=== PATIENT | male | born 1955 | race African-American/Black ===

== ENCOUNTER 2016-07-20 11:55 | Emergency (ER) | payer OTHER ==
--- NOTE | 2016-07-20 12:00 | ER Document Report ---
ED Medical Screen (RME) - General Stated Complaint: TOE PAIN Mode of Arrival: Ambulatory Information source: Patient Notes: Patient presents emergency department with right great toe pain after stubbing it on Wednesday night. Reports that toenail is loose. Patient denies past medical history of diabetes. I have greeted and performed a rapid initial assessment of this patient. A comprehensive ED assessment and evaluation of the patient, analysis of test results and completion of the medical decision making process will be conducted by additional ED providers.
[2016-07-20 12:02] VITALS: BP 167/101
[2016-07-20] MEDS ORDERED: LIDOCAINE 1% INJ-PF (10 MG/ML) 30 ML SDV INJ ONE (12:59)
[2016-07-20] MEDS ORDERED: ACETAMINOPHEN 325 MG TABLET PO ONE (13:00)
--- NOTE | 2016-07-20 13:11 | ER Document Report ---
ED Extremity Problem, Lower - General Chief Complaint: Toe Injury Stated Complaint: TOE PAIN Mode of Arrival: Ambulatory Notes: Patient is a 61-year-old male who presents emergency Department complaining of right big toe pain. Patient states that he stubbed his toe in his kitchen on Wednesday evening and his toenail has been loose since then. He states that he came in today because his toe has been draining yellow cloudy discharge. Admits to pain at the area. Has been able to bear weight. Denies any bleeding. Past medical history significant for chronic low back pain. Denies any history of diabetes or chronic wounds. TRAVEL OUTSIDE OF THE [place] IN LAST 30 DAYS: No - Related Data Allergies/Adverse Reactions: celecoxib [From Celebrex] Allergy (Verified 07/20/16 12:00) NSAIDS (Non-Steroidal Anti-Inflamma Allergy (Verified 07/20/16 12:00) Past Medical History - General Information source: Patient - Social History Smoking Status: Current Every Day Smoker Chew tobacco use (# tins/day): Yes Family History: Reviewed & Not Pertinent Patient has suicidal ideation: No Patient has homicidal ideation: No Renal/ Medical History: Denies: Hx Peritoneal Dialysis Review of Systems - Review of Systems Musculoskeletal: See HPI -: Yes All other systems reviewed and negative Physical Exam - Vital signs Vitals: Temp Pulse Resp BP Pulse Ox 98.3 F 84 16 167/101 H 97 07/20/16 12:00 07/20/16 12:00 07/20/16 12:00 07/20/16 12:00 07/20/16 12:00 - General General appearance: Appears well, Alert In distress: None - Extremities Foot: Nail injury - complete nail avulsion of the nail bed of the right big toe with cloudy drainage, tenderness and swelling of the big toe. - Skin Skin Temperature: Warm Skin Moisture: Dry Skin Color: Normal Skin Turgor: Elastic Course - Re-evaluation Re-evalutation: 07/20/16 13:49 Patient presents with a simple avulsion of the right big toenail. Local lidocaine injected and toenail easily removed. Irrigated with saline and Shur- Clens and dressed with iodoform gauze and Kerlix. Discussed with him cleaning and wound care. - Vital Signs Vital signs: Temp Pulse Resp BP Pulse Ox 98.3 F 84 16 167/101 H 97 07/20/16 12:00 07/20/16 12:00 07/20/16 12:00 07/20/16 12:00 07/20/16 12:00 - Diagnostic Test Radiology reviewed: Image reviewed, Reports reviewed - No evidence of fracture Procedures - Nail Trephanation/Removal Right Great toe Time completed: 13:35 Nail Trepanation/Removal Location: removal right big toe Betadine prep applied: Yes Sterile Dressing Applied: Yes Discharge - Discharge Clinical Impression: Nail avulsion of toe Condition: Good Disposition: HOME, SELF-CARE Additional Instructions: Wound care Simple avulsions should be soaked in warm water 24 to 48 hours after the procedure. Before removal of the dressing, I recommend that patients soak their digit in the shower or in a bowl to avoid bleeding and pain when the dressing is removed. A gelatinous film of epithelium is likely to appear over the exposed nail bed and can be gently removed with dilute hydrogen peroxide on a cotton-tipped applicator. The cotton tip should be rolled over the site gently, avoiding rubbing or vigorous attempts at tissue removal. A small amount of petrolatum or antibiotic ointment is placed on the tissue, then it is covered with an adhesive bandage for a simple avulsion. This dressing change should be repeated daily. Forms: Elevated Blood Pressure Referrals: ÁNGEL MXI MD [ACTIVE STAFF] - Follow up as needed
== END 2016-07-20 14:10 | disposition home or self-care (01) ==
LOC: ER 11:55
PROC: 0HDRXZZ Extraction of Toe Nail, External Approach (ICD-10-PCS; principal; 2016-07-20)
DX: S91.201A Unspecified open wound of right great toe with damage to nail, initial encounter (principal); W22.09XA Striking against other stationary object, initial encounter; Y92.000 Kitchen of unspecified non-institutional (private) residence as the place of occurrence of the external cause; F17.200 Nicotine dependence, unspecified, uncomplicated
CPT/HCPCS: 99283

== ENCOUNTER 2018-05-27 15:49 | Emergency (ER) | payer OTHER ==
--- NOTE | 2018-05-27 16:29 | ER Document Report ---
ED Medical Screen (RME) - General Chief Complaint: Chest Pain Stated Complaint: CHEST PAIN Time Seen by Provider: 05/27/18 16:26 Mode of Arrival: Ambulatory Information source: Patient Notes: 62-year-old male presents to ED for complaint of chest pain with respirations or cough shortness of breath dehydration and severe diarrhea. He states he is coughing up a very thick yellow sputum. He states he had a colonoscopy on May 23 and has had severe diarrhea since starting the prep the day before. He states he has lost 10 pounds since the colonoscopy due to diarrhea. He states he feels very dehydrated chest feels tight legs are cramping. Patient states the only past medical history is high blood pressure and arthritis. He states when he had a colonoscopy he had some polyps. I have greeted and performed a rapid initial assessment of this patient. A comprehensive ED assessment and evaluation of the patient, analysis of test results and completion of medical decision making process will be conducted by an additional ED providers. I have greeted and performed a rapid initial assessment of this patient. A comprehensive ED assessment and evaluation of the patient, analysis of test results and completion of medical decision making process will be conducted by an additional ED providers. TRAVEL OUTSIDE OF THE [place] IN LAST 30 DAYS: No - Related Data Allergies/Adverse Reactions: celecoxib [From Celebrex] Allergy (Verified 07/20/16 12:00) NSAIDS (Non-Steroidal Anti-Inflamma Allergy (Verified 07/20/16 12:00) Past Medical History Renal/ Medical History: Denies: Hx Peritoneal Dialysis Physical Exam - Vital signs Vitals: Temp Pulse Resp BP Pulse Ox 97.6 F 110 H 19 111/80 98 05/27/18 16:04 05/27/18 16:04 05/27/18 16:04 05/27/18 16:04 05/27/18 16:04 Course - Vital Signs Vital signs: Temp Pulse Resp BP Pulse Ox 97.6 F 110 H 19 111/80 98 05/27/18 16:04 05/27/18 16:04 05/27/18 16:04 05/27/18 16:04 05/27/18 16:04
[2018-05-27] MEDS ORDERED: NORMAL SALINE 1000 ML 1,000 ML IV ONE (16:30)
--- NOTE | 2018-05-27 18:27 | EKG REPORT ---
SEVERITY:- BORDERLINE ECG - SINUS RHYTHM PROBABLE LEFT ATRIAL ABNORMALITY : Confirmed by: Calos Allen MD 27-May-2018 18:27:13
[2018-05-27 19:03] LABS: HEMATOCRIT 47.3 % (37.9-51.0); HEMOGLOBIN 16.6 g/dL (13.5-17.0); MEAN CORPUSCULAR HEMOGLOBIN 32.3 pg (27.0-33.4); MEAN CORPUSCULAR HGB CONC 35.1 g/dL (32.0-36.0); MEAN CORPUSCULAR VOLUME 92 fl (80-97); PLATELET COUNT 135 10^3/uL (150-450); RED BLOOD COUNT 5.14 10^6/uL (4.35-5.55); RED CELL DISTRIBUTION WIDTH 13.6 % (11.5-14.0); WHITE BLOOD COUNT 9.1 10^3/uL (4.0-10.5)
[2018-05-27 19:06] LABS: ALANINE AMINOTRANSFERASE 36 U/L (21-72); ALBUMIN 4.7 g/dL (3.5-5.0); ALKALINE PHOSPHATASE 76 U/L (38-126); ANION GAP 12 (5-19); ASPARTATE AMINO TRANSFERASE 47 U/L (17-59); BILIRUBIN,DIRECT 0.4 mg/dL (0.0-0.4); BILIRUBIN,TOTAL 0.7 mg/dL (0.2-1.3); BLOOD UREA NITROGEN 16 mg/dL (7-20); CALCIUM 9.4 mg/dL (8.4-10.2); CARBON DIOXIDE 25 mmol/L (22-30); CHLORIDE 106 mmol/L (98-107); CREATINE KINASE 88 U/L (55-170); GLUCOSE 107 mg/dL (75-110); POTASSIUM 4.9 mmol/L (3.6-5.0); SODIUM 142.5 mmol/L (137-145); TOTAL PROTEIN 7.7 g/dL (6.3-8.2)
[2018-05-27 19:20] LABS: CREATINE KINASE MB < 0.22 ng/mL (<4.55); TROPONIN I < 0.012 ng/mL
--- NOTE | 2018-05-27 19:22 | RADIOLOGY REPORT (SQ) ---
EXAM DESCRIPTION: CHEST 2 VIEWS COMPLETED DATE/TIME: 05/27/2018 7:00 pm REASON FOR STUDY: cough congestion sob COMPARISON: None. EXAM PARAMETERS: NUMBER OF VIEWS: two views TECHNIQUE: Digital Frontal and Lateral radiographic views of the chest acquired. RADIATION DOSE: NA LIMITATIONS: none FINDINGS: LUNGS AND PLEURA: No acute opacities. Scarring at the lung bases. No pneumothorax. MEDIASTINUM AND HILAR STRUCTURES: No masses or contour abnormalities. HEART AND VASCULAR STRUCTURES: Heart normal size. No evidence for failure. BONES: No acute findings. HARDWARE: None in the chest. OTHER: No other significant finding. IMPRESSION: Chronic appearing changes without acute parenchymal opacities. TECHNICAL DOCUMENTATION: JOB ID: [id number] [employer]- All Rights Reserved Reading location - IP/workstation name: [email or web address]
[2018-05-27 19:36] LABS: ABSOLUTE LYMPHOCYTES# (MANUAL) 1.1 10^3/uL (0.5-4.7); ABSOLUTE MONOCYTES # (MANUAL) 0.8 10^3/uL (0.1-1.4); ABSOLUTE NEUTROPHILS# (MANUAL) 7.2 10^3/uL (1.7-8.2); BASOPHILS % (MANUAL) 0 % (0-2); EOSINOPHILS % (MANUAL) 0 % (0-6); LYMPHOCYTES % (MANUAL) 12 % (13-45); MONOCYTES % (MANUAL) 9 % (3-13); PLATELET LARGE PRESENT; SEGMENTED NEUTROPHILS % (MAN) 79 % (42-78); TOTAL CELLS COUNTED 100
[2018-05-27 19:37] LABS: PLATELET COMMENT DECREASED; RBC MORPHOLOGY COMMENT NORMO-CYTIC/CHROMIC
--- NOTE | 2018-05-27 22:04 | ER Document Report ---
ED General - General Chief Complaint: Chest Pain Stated Complaint: CHEST PAIN Time Seen by Provider: 05/27/18 16:26 Primary Care Provider: KLEBER PINA [Primary Care Provider] - 05/30/18 Mode of Arrival: Ambulatory Notes: Patient is a pleasant 62-year-old male presents with complaint of body aches. He is also diarrhea. He says he is felt that ever since he had a colonoscopy. He said he had a colonoscopy did the prep and since that has had recurrent diarrhea and feels as if he is becoming dehydrated. He also noticed shortly after colonoscopy was having a lot of coughing. He said whenever he coughs it hurts in his lower chest. He says he is bringing up mucousy type sputum. He has not noticed any fevers. He does not have any abdominal pain. No blood in his stool. No vomiting. No other complaints at this time. TRAVEL OUTSIDE OF THE [place] IN LAST 30 DAYS: No - Related Data Allergies/Adverse Reactions: celecoxib [From Celebrex] Allergy (Verified 07/20/16 12:00) NSAIDS (Non-Steroidal Anti-Inflamma Allergy (Verified 07/20/16 12:00) Past Medical History - General Information source: Patient - Social History Smoking Status: Current Every Day Smoker Frequency of alcohol use: Occasional Drug Abuse: Marijuana Family History: Reviewed & Not Pertinent Patient has suicidal ideation: No Patient has homicidal ideation: No - Past Medical History Cardiac Medical History: Reports: Hx Hypertension Renal/ Medical History: Denies: Hx Peritoneal Dialysis Musculoskeletal Medical History: Reports Hx Arthritis Review of Systems - Review of Systems Notes: My Normal Review Basic REVIEW OF SYSTEMS: CONSTITUTIONAL : Denies fever, chills, or sweats. Denies recent illness. EENT: Denies eye, ear, throat, or mouth pain or symptoms. Denies nasal or sinus congestion. CARDIOVASCULAR: Pain with coughing RESPIRATORY: Coughing up of thick yellow sputum GASTROINTESTINAL: Diarrhea GENITOURINARY: Denies difficulty urinating, painful urination, burning, frequency, or blood in urine. MUSCULOSKELETAL: Denies neck or back pain or joint pain or swelling. SKIN: Denies rash or skin lesions. NEUROLOGICAL: Denies altered mental status or loss of consciousness. Denies headache. Denies weakness or paralysis or loss of use of either side. Denies problems with gait or speech. Denies sensory or motor loss. ALL OTHER SYSTEMS REVIEWED AND NEGATIVE. Physical Exam - Vital signs Vitals: Temp Pulse Resp BP Pulse Ox 97.6 F 110 H 19 111/80 98 05/27/18 16:04 05/27/18 16:04 05/27/18 16:04 05/27/18 16:04 05/27/18 16:04 - Notes Notes: General Appearance: Well nourished, alert, cooperative, no acute distress, no obvious discomfort. Well-appearing. Vitals: reviewed, See vital signs table. Head: no swelling or tenderness to the head Eyes: PERRL, EOMI, Conjuctiva clear Mouth: No decreasd moisture Lungs: No wheezing, No rales, some basilar rhonchorous breath sounds., No accessory muscle use, good air exchange bilaterally. Heart: Tachycardic rate, Regular rythm, No murmur, no rub Abdomen: Normal BS, soft, No rigidity, No abdominal tenderness, No guarding, no rebound, no abdominal masses, no organomegaly Extremities: strength 5/5 in all extremities, good pulses in all extremities, no swelling or tenderness in the extremities, no edema. Skin: warm, dry, appropriate color, no rash Neuro: speech clear, oriented x 3, normal affect, responds appropriately to questions. Course - Re-evaluation Re-evalutation: 05/28/18 08:07 Patient is bringing up yellowish type sputum. There is no pneumonia on chest x- ray. He continued to be tachycardic and therefore I went forward with a CTA chest as he just had a recent procedure and was persistently tachycardia. This showed some bronchiectasis with mucus plugging. I therefore placed him on been on inhalers can place him azithromycin. He then spiked a fever just prior to discharge. I kept him a bit longer to make sure his fever resolved. I will switch him from azithromycin to Levaquin as of suspect he probably has some superimposed bacterial infection from the mucus plugging in the large amount of yellow sputum that he is bringing up. I have given him IV fluids. He feels much improved after IV fluids. His tachycardia is intermittent. At times heart will be in the 80s and at other times his heart rate will be in the low 100s. He clinically looks very well. He says he feels much improved. Feel he safe to be discharged home. I encouraged him to have a low threshold to return to ER immediately if he has recurrent fevers, difficulty breathing, bloody stools, worsening diarrhea, abdominal pain, or if he feels unwell. Patient agrees with plan and will be discharged home. Dictation of this chart was performed using voice recognition software; therefore, there may be some unintended grammatical errors. - Vital Signs Vital signs: Temp Pulse Resp BP Pulse Ox 98.9 F 90 19 110/71 97 05/28/18 03:48 05/28/18 03:48 05/28/18 03:48 05/28/18 03:48 05/28/18 03:48 - Laboratory Result Diagrams: 05/27/18 18:15 05/27/18 18:15 Laboratory results interpreted by me: 05/27/18 05/27/18 18:15 18:15 Plt Count 135 L Seg Neuts % (Manual) 79 H Lymphocytes % (Manual) 12 L Magnesium 2.7 H - EKG Interpretation by Me Additional EKG results interpreted by me: 05/27/18 22:03 EKG is reviewed and interpreted by me. EKG shows sinus rhythm with a rate of [address] segment elevation or depression. No ischemic T wave inversions. MD interval, QRS duration, QT intervals are within normal range. Old EKG for comparison is unavailable at this time. Discharge - Discharge Clinical Impression: Bronchitis Back pain Qualifiers: Back pain location: low back pain Chronicity: acute Back pain laterality: bilateral Sciatica presence: without sciatica Qualified Code(s): M54.5 - Low back pain Diarrhea Qualifiers: Diarrhea type: unspecified type Qualified Code(s): R19.7 - Diarrhea, unspecified Condition: Good Disposition: HOME, SELF-CARE Additional Instructions: Please continue to rehydrate with noncaffeinated fluids. please take the nausea medication as prescribed. Please return to the ER immediately if you develop fevers, vomiting, worsening pain, blood in your stool, or feel that you are wor sening in any way. Please follow up with your doctor on Wednesday for reevaluation. Use your inhaler as 2 puffs every 4 hours as needed for cough and to help airway so that he can clear the mucus in your lungs better. Please return to ER immediately if you have difficulty breathing or current worsening chest pain. You have been prescribed an antibiotic that is in the class of antibiotics called fluoroquinolones. On rare occasions these can cause weakness of the tendons. You should therefore avoid any type of heavy lifting or sporting activities while you are on this antibiotic and up to 1 week after stopping it. Prescriptions: RX: Azithromycin [Zithromax 250 mg Tablet] 250 mg PO ASDIR PRN #6 tablet PRN Reason: Dicyclomine HCl [Bentyl 20 mg Tablet] 20 mg PO QID #20 tablet Levofloxacin [Levaquin 750 mg Tablet] 750 mg PO DAILY #5 tablet Referrals: [facility] [Primary Care Provider] - 05/30/18
[2018-05-27] MEDS ORDERED: DICYCLOMINE HCL INJ 20 MG/2 ML AMPULE IM ONE (23:08)
[2018-05-27] MEDS ORDERED: RINGERS SOLUTION,LACTATED 1,000 ML IV ONE (23:08)
--- NOTE | 2018-05-28 02:27 | RADIOLOGY REPORT (SQ) ---
CLINICAL HISTORY: dyspnea, tachycardia, chest pain COMPARISON: None. TECHNIQUE: CT CHEST ANGIOGRAPHY WITHOUT THEN WITH IV CONTRAST on 05/28/2018 1:44 AM [employer]. MIPS reconstructions were generated. This exam was performed according to our departmental dose-optimization program, which includes automated exposure control, adjustment of the mA and/or kV according to patient size and/or use of iterative reconstruction technique. MIP images were generated. FINDINGS: Thoracic aorta is normal in course and caliber without aneurysm or dissection. Pulmonary arteries are adequately opacified without acute or chronic filling defects. The heart is normal in size. There is no pericardial effusion. Intrathoracic lymph nodes are not enlarged. Right thyroid nodule measures 1.5 cm. There is no pleural effusion, pleural thickening or pneumothorax. There is bibasilar mucous plugging, especially in the right with associated bronchial wall thickening and mild bronchiectasis. There is upper lung paraseptal and centrilobular emphysema. There are no acute abnormalities within the limited images of the upper abdomen. There are no acute osseous findings. No suspicious bony lesions. IMPRESSION: Bibasilar bronchiectasis and mucous plugging. Underlying infectious process is not excluded. No aortic dissection or aneurysm. No pulmonary embolus.
[2018-05-28] MEDS ORDERED: ALBUTEROL SULFATE HFA (90 MCG/PUFF) 8 GM MDI (1 MDI/ER DISP) IH ONE (02:33)
[2018-05-28] MEDS ORDERED: ACETAMINOPHEN 325 MG TABLET PO ONE (02:46)
[2018-05-28] MEDS ORDERED: LEVOFLOXACIN 750 MG TABLET PO ONE (02:47)
[2018-05-28] MEDS ORDERED: ACETAMINOPHEN 325 MG TABLET ONE (02:47)
[2018-05-28 04:04] VITALS: BP 110/71
== END 2018-05-28 04:03 | disposition home or self-care (01) ==
LOC: ER 15:49
DX: J40 Bronchitis, not specified as acute or chronic (principal); M54.5 Low back pain; R19.7 Diarrhea, unspecified; R07.9 Chest pain, unspecified; M79.10 Myalgia, unspecified site; R05 Cough; Z98.890 Other specified postprocedural states; F17.200 Nicotine dependence, unspecified, uncomplicated; I10 Essential (primary) hypertension
CPT/HCPCS: 93005; 99285; 96372; 96360; 96361; 36415; 87040; 82553; 82550; 83735; 85025; 80053; 84484; 71046; 71275; 93010; J0500; J7030; J7120; J3490

== ENCOUNTER 2018-10-20 21:45 | Emergency (ER) | payer OTHER ==
[2018-10-20 21:59] VITALS: BP 134/72
--- NOTE | 2018-10-20 23:43 | ER Document Report ---
ED Medical Screen (RME) - General Chief Complaint: Rib Pain Stated Complaint: FALL Time Seen by Provider: 10/20/18 23:39 Primary Care Provider: YOVANI,KLEBER [Primary Care Provider] - Follow up as needed Notes: 63-year-old -[place]aced[place] male coming in today chief complaint right rib pain. He states because of his bad neuropathy his legs gave out on him as he was going to sit down on the couch. Subsequently he fell and hit his right ribs on the armrest of the couch. States he could feel the would from the hand and wrist striking each of his ribs on the right side. He is not short of breath but is having quite a bit of pain when he takes a deep breath. I have treated and performed a rapid initial assessment of this patient. A comprehensive ED assessment and evaluation of the patient, analysis of test resu lts and completion of medical decision making process will be conducted by additional ED providers. PHYSICAL EXAMINATION: GENERAL: Well-appearing, well-nourished and in no acute distress. A&Ox4. A nswers questions appropriately. LUNGS: Breath sounds clear to auscultation bilaterally and equal. No wheezes rales or rhonchi. Right-sided rib tenderness HEART: Regular rate and rhythm without murmurs, rubs, gallops. ABDOMEN: Soft, nondistended abdomen. No guarding, no rebound. Normal bowel sounds present. No CVA tenderness bilaterally. + mild epigastric tenderness (cannot elicit thorough abd exam w/o table, however). Extremities: No cyanosis, clubbing, or edema b/l. NEUROLOGICAL: Normal speech, normal gait. PSYCH: Normal mood, normal affect. TRAVEL OUTSIDE OF THE [place] IN LAST 30 DAYS: No - Related Data Allergies/Adverse Reactions: celecoxib [From Celebrex] Allergy (Verified 10/20/18 21:47) NSAIDS (Non-Steroidal Anti-Inflamma Allergy (Verified 10/20/18 21:47) Past Medical History - Past Medical History Cardiac Medical History: Reports: Hx Hypertension Renal/ Medical History: Denies: Hx Peritoneal Dialysis Musculoskeltal Medical History: Reports Hx Arthritis Physical Exam - Vital signs Vitals: Temp Pulse Resp BP Pulse Ox 98.6 F 63 18 134/72 H 97 10/20/18 21:57 10/20/18 21:57 10/20/18 21:57 10/20/18 21:57 10/20/18 21:57 Course - Vital Signs Vital signs: Temp Pulse Resp BP Pulse Ox 98.6 F 63 18 134/72 H 97 10/20/18 21:57 10/20/18 21:57 10/20/18 21:57 10/20/18 21:57 10/20/18 21:57 Doctor's Discharge - Discharge Referrals: [facility] [Primary [facility]] - Follow up as needed
[2018-10-20] MEDS ORDERED: OXYCODONE-ACETAMINOPHEN 5-325 MG TABLET PO ONE (23:44)
--- NOTE | 2018-10-21 00:21 | RADIOLOGY REPORT (SQ) ---
EXAM: X-ray RIBS unilateral with chest CLINICAL INDICATION: 63-year-old male who hit his right side against a chair arm and has pain along the lateral aspect of this right ribs TECHNICAL DATA: Three views of the right sided ribs were performed as well as a PA chest on 10/21/2018 at 12:00 AM. COMPARISONS: CT chest performed on 05/28/2018 FINDINGS: Three views of the right-sided ribs were performed and reveal no evidence of fracture or other acute osseous injury. No focal lytic or sclerotic bone lesions are identified. No definite pneumothorax is seen. No definite soft tissue abnormalities are identified. The lungs are well expanded and clear. There are scattered areas of fibrosis or atelectasis in the perihilar regions. The cardiac silhouette and pulmonary vascularity are within normal limits. There are emphysematous changes in the lung apices. IMPRESSION: No evidence of acute rib injury. No evidence of acute intrathoracic disease. Suspect mild fibrosis and/or atelectasis in the perihilar regions.
--- NOTE | 2018-10-21 01:45 | ER Document Report ---
ED General - General Chief Complaint: Rib Pain Stated Complaint: FALL Time Seen by Provider: 10/20/18 23:39 Primary Care Provider: YOVANI,KLEBER [Primary Care Provider] - Follow up as needed Mode of Arrival: Ambulatory Information source: Patient TRAVEL OUTSIDE OF THE [place] IN LAST 30 DAYS: No - HPI Patient complains to provider of: Right rib injury Onset: Just prior to arrival Onset/Duration: Constant Quality of pain: Sharp Severity: Severe Pain Level: 4 Associated symptoms: None Exacerbated by: Deep breathing Relieved by: Denies Similar symptoms previously: No Notes: 63-year-old -[place] male coming in today with right rib pain. He was going to sit down on the couch and his legs gave out. Subsequently landed with his right side against the armrest of the couch. Having pain only in the right ribs. Denies other injuries. - Related Data Allergies/Adverse Reactions: celecoxib [From Celebrex] Allergy (Verified 10/20/18 21:47) NSAIDS (Non-Steroidal Anti-Inflamma Allergy (Verified 10/20/18 21:47) Past Medical History - General Information source: Patient - Social History Smoking Status: Current Every Day Smoker Frequency of alcohol use: None Drug Abuse: None Family History: Reviewed & Not Pertinent - Past Medical History Cardiac Medical History: Reports: Hx Hypertension Renal/ Medical History: Denies: Hx Peritoneal Dialysis Musculoskeletal Medical History: Reports Hx Arthritis Review of Systems - Review of Systems Notes: Constitutional: No fevers. No chills. EENT: No eye redness. No eye pain. No ear pain. No sore throat. Cardiovascular: No chest pain. No palpitations. Respiratory: No cough. No shortness of breath. No respiratory distress. Gastrointestinal: No abdominal pain. No nausea, vomiting, or diarrhea. Genitourinary: Atraumatic. No lesions. No pain. No discharge. Musculoskeletal: Positive for rib pain right side Skin: No rash or lesions. Lymphatic: No swollen lymph nodes. Neurologic: No headache. No syncope. Psychiatric: No suicidal or homicidal ideation. Physical Exam - Vital signs Vitals: Temp Pulse Resp BP Pulse Ox 98.6 F 63 18 134/72 H 97 10/20/18 21:57 10/20/18 21:57 10/20/18 21:57 10/20/18 21:57 10/20/18 21:57 - Notes Notes: General: Well-developed, well-nourished. In no acute distress. Non-toxic appearing. Cardiac: Well-perfused. Regular rate and rhythm. No murmurs, rubs, or gallops. Pulmonary: No respiratory distress. No cyanosis. Bilateral lung fiels are clear to auscultation. Abdominal: Non-distended. Non-rigid. Bowels sounds are present in all four quadrants. No guarding or rebound. HEENT: Head is atraumatic. Conjunctivae not reddened. No tearing. PERRL. EOMI. Orbits atraumatic. No periorbital swelling or erythema. Oropharynx is without erythema, swelling, or exudates. Neck: Supple. No adenopathy. No meningismus. Dermatologic: Warm with good turgor. No rash. Atraumatic. Chest: Right lateral rib tenderness. No posterior or anterior tenderness. No crepitus. Musculoskeletal: Moves all extremities well. No range of motion deficits. no muscular or joint tenderness. No paraspinal muscle tenderness. no midline spinal tenderness or step-off. Genitourinary: Examination deferred Neurologic: No gross neurologic deficits. Psychiatric: Normal mood. Course - Re-evaluation Re-evalutation: 10/21/18 01:43 X-rays negative will treat as occult fracture. Will discharge - Vital Signs Vital signs: Temp Pulse Resp BP Pulse Ox 98.6 F 63 18 134/72 H 97 10/20/18 21:57 10/20/18 21:57 10/20/18 21:57 10/20/18 21:57 10/20/18 21:57 Discharge - Discharge Clinical Impression: Rib injury Condition: Good Disposition: HOME, SELF-CARE Instructions: Rib Contusion ([facility]) Prescriptions: Hydrocodone/Acetaminophen [[place] 5-325 mg Tablet] 1 tab PO Q6HP PRN #12 tablet PRN Reason: Referrals: [facility] [Primary [facility]] - Follow up as needed
== END 2018-10-21 01:00 | disposition home or self-care (01) ==
LOC: ER 21:45
DX: S29.9XXA Unspecified injury of thorax, initial encounter (principal); R07.81 Pleurodynia; W19.XXXA Unspecified fall, initial encounter; Y93.89 Activity, other specified; F17.200 Nicotine dependence, unspecified, uncomplicated; I10 Essential (primary) hypertension; Z88.8 Allergy status to other drugs, medicaments and biological substances
CPT/HCPCS: 99283